=== PATIENT | male | born 1960 | race Caucasian/White ===

== ENCOUNTER → 2016-09-01 09:31 | Day surgery (SDC) | payer OTHER ==
--- NOTE | 2016-08-26 10:15 | HP ---
HISTORY AND PHYSICAL: DATE OF PLANNED ADMISSION AND SURGERY: 09/01/16 HISTORY OF PRESENT ILLNESS: Mr. Bonilla is a 56-year-old white male who is admitted with right renal calculus for shockwave lithotripsy and possible insertion of a right ureteral stent. Mr. Bnoilla was diagnosed about two years ago with renal calculus disease. In January 2015, he underwent shockwave lithotripsy of an 8-mm calculus of the right kidney. He did well, and follow-up renal ultrasound showed a small cluster of calculi in the lower calyx of the right kidney. The patient was doing well until one week prior to admission when he noted total gross hematuria following heavy physical activity. There was associated mild right flank pain, but no renal colics. He did not have any voiding symptoms. He was evaluated in the office and had a renal ultrasound which showed a 1-cm calculus in the right renal pelvis associated with mild degree of right hydronephrosis. A full bladder ultrasound was normal. KUB showed two calcifications in the right kidney measuring 8 mm and 7 mm in size. PAST MEDICAL HISTORY AND SYSTEM REVIEW: The patient is in good health. He has hypertension and is maintained on lisinopril 20 mg daily. He has GERD and on ranitidine 10 mg daily. He denies any cardiac or pulmonary diseases or symptoms. He denies any allergies to medications. He has moderate obstructing voiding symptoms and moderate prostate enlargement. His PSA has been normal at about 1.8. PHYSICAL EXAMINATION GENERAL: Moderately overweight, but otherwise healthy-looking white male. VITAL SIGNS: Blood pressure 140/90, pulse 70. LUNGS: Clear. HEART: Regular and rhythmic. No murmurs. ABDOMEN: Soft. No masses, no tenderness, and no CVA tenderness. RECTAL: Exam done last summer showed a moderately enlarged, but non-suspicious , prostate. IMPRESSION: Right renal calculi with a 1-cm calculus in the right renal pelvis by renal ultrasound. PLAN: Plan is for shockwave lithotripsy of the right renal calculus and cystoscopy with right ureteral stent placement. I discussed the above plans with the patient, and all his questions were answered. CC: Karina Knott NP * [id number]/[facility] #: [id number] MTDIvanna
[~2016-09-01 09:31] MED LIST: Buffered Lidocaine 1% SYR 3ML* 3 ML/SYR SYRINGE INTRADERM ONE; Buffered Lidocaine 1% SYR 3ML* 3 ML/SYR SYRINGE ONE; EPHEDrine (Pressors)* 50 MG/ML VIAL ONE; Lidocaine 2% MPF* 2 ML VIAL ONE; Ondansetron INJ* 2 MG/ML VIAL IV PRN; Propofol* 10 MG/ML 20 ML BTL IV PUSH ONE; cefTRIAXone(*) 2 GM ADDV.VIAL IVPB ONE; fentaNYL* 50 MCG/ML 2 ML VIAL (100 MCG VIAL) IV PRN; fentaNYL* 50 MCG/ML 2 ML VIAL (100 MCG VIAL) ONE
--- NOTE | 2016-09-01 10:11 | RAD ---
INDICATION: Right-sided nephrolithiasis COMPARISON: August 25, 2016 TECHNIQUE: A single view of the abdomen is submitted. FINDINGS: Bones: There are no acute bony findings. Soft tissues: The soft tissues appear normal. The psoas margins are sharp. Bowel gas pattern: Normal Calcifications: There are 2 right renal calculi, unchanged. The largest measures approximately 0.8 cm. Other: None IMPRESSION: RIGHT-SIDED NEPHROLITHIASIS, UNCHANGED
[2016-09-01 14:49] VITALS: BP 141/60
--- NOTE | 2016-09-02 08:55 | OP ---
DATE OF OPERATION: 09/01/16 - [facility] DATE OF : 56 SURGEON: Alessandro Reeves MD ANESTHESIOLOGIST: Harry Garcia DO ANESTHESIA: General. PRE-OP DIAGNOSIS: Right renal calculus (8 mm). POST-OP DIAGNOSIS: Right renal calculus (8 mm). OPERATIVE PROCEDURE: Shock wave lithotripsy of right renal calculus. INDICATION FOR PROCEDURE: Mr. Bonilla is a 56-year-old white male who noted gross painless hematuria following heavy exercise. There was some associated mild-to- moderate right flank pain. Renal ultrasound showed an 8-mm calculus in the area of the right renal pelvis. KUB confirmed the presence of an 8-mm calculus in the mid right kidney, and a 5 mm calculus in the lower pole of the Rt kidney. Because of the above history and findings, the patient is admitted for the above procedure. PATHOLOGY: Preoperative KUB showed an 8-mm calculus in the mid pole calyx of the right kidney and a 4 to 5 mm calculus in the lower pole calyx. No other abnormal calcifications were noted. DESCRIPTION OF PROCEDURE: After successful general anesthesia, the patient was placed in the supine position on the shock wave lithotripsy table. 8 mm calculus was visualized in the mid pole of the right kidney and the position of the generator was adjusted to have the stone in the focus of the shock waves. A total of 2,400 shocks were then delivered at a rate of 90 shocks per minute. A 2 minutes break was taken after the initial 300 shocks. The proper positioning and fragmentation of the stone was monitored periodically. At the completion of the treatment, there seemed to be good fragmentation of the stone. Because of the adequacy of the fragmentation, it was decided not to proceed with a stent placement. The patient tolerated the procedure well and left the operating room in good condition. CC: [place] [id number]/[facility] #: [id number] MTDD
== END | disposition home or self-care (01) ==
LOC: OR 09:31 → IMG 09:31
PROVIDERS: ATTEND Urology
DX: N20.0 Calculus of kidney (principal); R31.9 Hematuria, unspecified; I10 Essential (primary) hypertension; Z87.891 Personal history of nicotine dependence
CPT/HCPCS: 74000; J0696; J2704; J3010

== ENCOUNTER 2021-01-05 21:52 | Observation (INO) ==
[2021-01-05] MEDS ORDERED: NS 0.9% 1000 ml BAG 1,000 ML IV ONE ×2 (22:32→23:52)
[2021-01-05 22:48] LABS: ABS Basophils 0.1 10^3/ul (0-0.2); ABS Eosinophils 0.2 10^3/ul (0-0.6); ABS Lymphocytes 2.3 10^3/ul (1.0-4.8); ABS Monocytes 0.6 10^3/ul (0-0.8); ABS Neutrophils 4.7 10^3/ul (1.5-7.7); Eosinophil % 1.9 %; Hematocrit 43 % (42-52); Hemoglobin 15.2 g/dL (14.0-18.0); Lymphocyte % 29.5 %; Mean Corpuscular HGB Conc 36 g/dL (31-36); Mean Corpuscular Hemoglobin 32 pg (27-31); Mean Corpuscular Volume 90 fL (80-94); Platelet Count 217 10^3/uL (150-450); Red Blood Count 4.74 10^6 /uL (4.18-5.48); Red Cell Distribution Width 13 % (10-15); White Blood Count 7.8 10^3/uL (3.5-10.8)
[2021-01-05 23:09] LABS: ALT 17 U/L (7-52); Albumin 4.6 g/dL (3.2-5.2); Albumin/Globulin Ratio 1.6 (1-3); Alkaline Phosphatase 51 U/L (35-149); Blood Urea Nitrogen 21 mg/dL (6-24); CO2 Carbon Dioxide 23 mmol/L (22-32); Calcium 9.3 mg/dL (8.6-10.3); Chloride 104 mmol/L (101-111); Cholesterol 185 mg/dL; EGFR African American 82.1 (>60); EGFR Non-African American 67.8 (>60); Globulin 2.9 g/dL (2-4); Glucose 138 mg/dL (70-100); HDL Cholesterol 31.8 mg/dL; LDL Cholesterol 112 mg/dL; Sodium 133 mmol/L (135-145); Total Protein 7.5 g/dL (6.4-8.9); Triglycerides 205 mg/dL
[2021-01-05 23:18] LABS: Activated Partial Thrombo Time 31.6 seconds (26.0-38.0); INR 0.97 (0.82-1.09)
[2021-01-05 23:33] LABS: Anion Gap 6 mmol/L (2-11); Troponin I 0.08 ng/mL (<0.03)
[2021-01-05] MEDS ORDERED: Iohexol 350 (CONTRAST) 500 ML MDV IV ONE (23:34)
[2021-01-06 00:55] LABS: Potassium Redraw 4.1 mmol/L (3.5-5.0)
[2021-01-06] MEDS ORDERED: Ondansetron 4 mg VIAL 2 MG/ML 2 ml VIAL IV PRN (02:25)
[2021-01-06] MEDS ORDERED: Al Hydrox/Mg Hydrox/Simet LIQ 30 ML UDC PO PRN (02:25)
[2021-01-06 02:37] LABS: C Reactive Protein 3.02 mg/L (<8.01)
[2021-01-06 02:41] LABS: Troponin I 0.08 ng/mL (<0.03)
[2021-01-06 03:21] LABS: Erythrocyte Sed Rate 3 mm/Hr (0-19)
[2021-01-06 05:20] LABS: Troponin I 0.07 ng/mL (<0.03)
[2021-01-06] MEDS: Enoxaparin 40 MG/0.4 ML SYR SUBCUT SCH (06:18)
[2021-01-06] MEDS ORDERED: Aspirin EC 325 mg TAB.EC PO SCH (09:00)
[2021-01-06 14:33] LABS: Urine Bacteria Absent (Absent); Urine Red Blood Cell Trace(0-2/hpf) (Absent); Urine White Blood Cell Trace(0-5/hpf) (Absent)
[2021-01-06 14:35] LABS: Urine Appearance Clear; Urine Bilirubin Negative (Negative); Urine Blood Negative (Negative); Urine Color Yellow; Urine Glucose Negative (Negative); Urine Ketones Negative (Negative); Urine Nitrite Negative (Negative); Urine Protein Negative (Negative); Urine Specific Gravity 1.014 (1.002-1.030); Urine Urobilinogen Negative (Negative)
[2021-01-07] MEDS: Enoxaparin 40 MG/0.4 ML SYR SUBCUT SCH (06:26)
[2021-01-07] MEDS ORDERED: Aspirin EC 81 mg TAB.EC (enteric coated) PO SCH (09:00)
[2021-01-07] MEDS ORDERED: Perflutren Lipid Microsphere 3 ML VIAL ONE (09:16)
[2021-01-07 16:38] VITALS: BP 163/66
== END 2021-01-07 16:35 | disposition home or self-care (01) ==
LOC: MEDTELE 21:52 → ED 21:52 → MEDTELE 01-06 05:51
PROVIDERS: ADMIT Pediatrics; ATTEND Internal Medicine